=== PATIENT | male | born 2005 | race Caucasian/White ===

== ENCOUNTER 2024-06-14 14:08 | Emergency (ER) | payer MEDICAID, SELFPAY ==
[2024-06-14 14:52] VITALS: BP 152/85; PULSE 75; RESP 24; TEMP 36.4; O2SAT 100; BMI 28.0
--- NOTE | 2024-06-14 15:09 | XR_ITS ---
Examination: Abdomen sonogram, Limited Date and time of exam: June 14, 2024 1516 hrs. Indications: Epigastric pain nausea vomiting beginning 6 months ago, worse today Technique: Real-time barragan scale transabdominal sonographic images of the upper abdomen obtained. Findings: Normal gallbladder Normal common bile duct 0.2 cm Pancreatic head 2.2 cm Liver 12.6 cm no focal liver lesions Normal hepatopedal portal venous flow Patent IVC Impression: Normal gallbladder Normal common bile duct
--- NOTE | 2024-06-14 15:10 | PD.EDRME ---
Rapid Medical Screening Exam RME Arrival date/time: 06/14/24 14:08 18-year-old male reports with complaints of epigastric abdominal pain projectile vomiting and nausea for several weeks Chief Complaint: Abdominal Pain Time Seen by Provider: 06/14/24 15:00 Vital signs: Vital Signs Temperature 97.5 F 06/14/24 14:52 Pulse Rate 75 06/14/24 14:52 Respiratory Rate 24 H 06/14/24 14:52 Blood Pressure 152/85 H 06/14/24 14:52 Pulse Oximetry (%) 100 06/14/24 14:52 Oxygen Delivery Method Room Air 06/14/24 14:52
[2024-06-14 15:50] LABS: Basophils # (Auto) 0.1 Thou/mm3 (0.0-0.2); Basophils % (Auto) 0 % (0-2.5); Eosinophils % (Auto) 0 % (0-10); Hematocrit 46.6 % (41.0-53.0); Hemoglobin 16.2 g/dL (13.5-16.0); Immature Granulocytes % (Auto) 0 % (0-0); Immature Granulocytes Auto 0.07 Thou/mm3 (0.00-0.00); Lymphocytes # (Auto) 1.2 Thou/mm3 (1.0-5.0); Lymphocytes % (Auto) 6 % (10-50); Mean Corpuscular HGB Conc 34.8 g/dl (31.0-37.0); Mean Corpuscular Hemoglobin 27.4 pg (25.0-35.0); Mean Corpuscular Volume 79 fL (80-100); Monocytes # (Auto) 0.7 Thou/mm3 (0.0-0.8); Monocytes % (Auto) 3 % (0-12); Neutrophils # (Auto) 17.1 Thou/mm3 (1.8-7.7); Neutrophils % (Auto) 90 % (37-80); Nucleated Red Blood Cell % 0 /100 WBC (0); Platelet Count 390 Thou/mm3 (140-440); RDW Standard Deviation 37.4 fL (35.1-43.9); Red Blood Count 5.91 Miln/mm3 (4.50-5.90)
[2024-06-14] MEDS: ONDANSETRON ODT 4 MG TABRAP PO (15:50)
[2024-06-14 16:05] LABS: Alanine Aminotransferase 14 U/L (10-49); Albumin, Serum 5.5 gm/dL (3.5-5.0); Albumin/Globulin Ratio 2.2 (1.2-2.2); Alkaline Phosphatase 77 U/L (46-116); Anion Gap 11 (7-16); Aspartate Amino Transferase 23 U/L (0-34); BUN/Creatinine Ratio 10 Ratio (12-20); Bilirubin,Total 1.1 mg/dL (0.3-1.2); Blood Urea Nitrogen 11 mg/dL (9-23); Calcium 10.4 mg/dL (8.3-10.6); Calcium (Corrected) 10.4 mg/dL (8.5-10.1); Carbon Dioxide 24.9 mMol/L (20.0-31.0); Chloride 103 mMol/L (98-107); Creatinine (Component) 1.1 mg/dL (0.6-1.3); Estimated Creatinine Clearance 117.5 mL/min (>60); Globulin 2.5 gm/dL (2.3-3.5); Glucose 138 mg/dL (74-106); Lipase 31 U/L (12-53); Osmolality,Calculated 278 (275-295); Potassium 4.3 mMol/L (3.4-5.1); Sodium 139 mMol/L (136-145); eGFR > 60 See Note
--- NOTE | 2024-06-14 18:06 | PC.NURSE ---
NO ANSWER IN LOBBY
[2024-06-14 18:34] LABS: Collection Type, Urine Clean Catch; RBC,Urine 0 /hpf (0-3); Squamous Epithelial Cell,Urine 0 /hpf (0-5); WBC,Urine 0 /hpf (0-5)
[2024-06-14 18:39] LABS: Bacteria,Urine Rare; Bilirubin,Urine Negative (Negative); Blood,Urine Negative (Negative); Clarity,Urine Clear (Clear/Hazy); Color,Urine Yellow (Lt Yel-Yel); Culture Indicated,Urine Not Indicated; Glucose, Urine Negative (Negative); Ketones,Urine 4+ (Negative); Leukocyte Esterase,Urine Negative (Negative); Nitrite,Urine Negative (Negative); PH,Urine 6.5 (5.0-7.0); Protein,Urine 1+ (Neg - Trace); Specific Gravity,Urine 1.033 (1.001-1.035); Urobilinogen,Urine Negative mg/dL (0.0-1.0)
[2024-06-14 19:03] LABS: Amphetamine/Methamp Scrn,U Negative (Negative); Barbiturate Screen,Urine Negative (Negative); Benzodiazepines Screen,Urine Negative (Negative); Benzoylecgonine Screen, Ur Negative (Negative); Fentanyl Screen,Urine Negative (Negative); Opiate Screen,Urine Negative (Negative); THC Screen,Urine Positive (Negative)
[2024-06-14 19:24] VITALS: BP 122/82; PULSE 88
--- NOTE | 2024-06-14 19:24 | PD.EDABDPN ---
ED Abdominal Pain RME/HPI General Chief Complaint: Abdominal Pain Stated complaint: EPIGASTRIC PAIN WITH VOMITING Time seen by provider: 06/14/24 15:00 Arrival date/time: 06/14/24 14:08 18-year-old male with no significant past medical history other than every day marijuana smoker presents emergency department complaining of epigastric pain with several episodes of nausea and vomiting this been ongoing for several weeks. Patient denies any fever, chills, dysuria, cough, shortness of breath, or any other associated symptom. Source: patient Mode of arrival: ambulatory Limitations: no limitations RME / HPI RME / HPI narrative: 06/14/24 14:08 18-year-old male reports with complaints of epigastric abdominal pain projectile vomiting and nausea for several weeks Related Data Previous Rx's ?Medication ?Instructions ?Recorded ondansetron 4 mg disintegrating 4 mg PO Q8H PRN nausea and 06/14/24 tablet vomiting #10 tabs Allergies Allergy/AdvReac Type Severity Reaction Status Date / Time No Known Allergies Allergy Unverified 06/14/24 15:11 Review of Systems Review of Systems Systems Reviewed: All systems reviewed, normal except as documented Constitutional Constitutional: Reports system reviewed and no additional complaints, except as documented, Denies body ache(s), Denies chills and Denies fever(s) Eyes Eyes: Reports system reviewed and no additional complaints, except as documented and Denies change in vision ENT Ears, Nose, Mouth, and Throat: Reports system reviewed and no additional complaints, except as documented, Denies disequilibrium, Denies dizziness, Denies sore throat and Denies vertigo Cardiovascular Cardiovascular: Reports system reviewed and no additional complaints, except as documented, Denies chest pain and Denies dyspnea Respiratory Respiratory: Reports system reviewed and no additional complaints, except as documented, Denies chest congestion, Denies cough and Denies dyspnea Gastrointestinal Gastrointestinal: Reports system reviewed and no additional complaints, except as documented, Reports abdominal pain, Reports nausea and Reports vomiting Musculoskeletal Musculoskeletal: Reports system reviewed and no additional complaints, except as documented, Denies abnormal gait and Denies arthralgias Integumentary/Breasts Skin/Breast: Reports system reviewed and no additional complaints, except as documented, Denies erythema, Denies rash and Denies wounds Neurologic Neurologic: Reports system reviewed and no additional complaints, except as documented, Denies abnormal gait, Denies disequilibrium, Denies dizziness and Denies vertigo Past Medical History Social History SMOKING STATUS: Current some day smoker ED Exam General Limitations: Present no limitations General appearance: Present alert and in no apparent distress Head Head exam: Present atraumatic Eye Eye exam: Present normal appearance, PERRL and EOMI ENT ENT exam: Present normal exam, normal oropharynx and mucous membranes moist Neck Neck exam: Present normal inspection, full ROM and trachea midline Chest Chest inspection: Present normal inspection and symmetric chest wall rise Respiratory Respiratory exam: Present normal lung sounds bilaterally Cardiovascular Cardiovascular exam: Present regular rate, normal rhythm and normal heart sounds Abdominal Exam Abdominal exam: Present soft and normal bowel sounds; Absent tenderness, Gordon's sign or tenderness at McBurney's Point Extremities Exam Extremities exam: Present normal inspection and full ROM Back Exam Back exam: Present normal inspection and full ROM Neurological Exam Neurological exam: Present alert, oriented X3 and CN II-XII intact Psychiatric Psychiatric exam: Present normal affect and normal mood Skin Skin exam: Present warm, dry, intact and normal color Course Quality Measures none Orders Category Date Time Status US abdomen limited Stat Exams 06/14/24 15:09 Completed CBC Stat Lab 06/14/24 15:38 Completed CMP [Comprehensive Metabolic Panel] Stat Lab 06/14/24 15:38 Completed Drug Screen,Urine Stat Lab 06/14/24 18:15 Completed Lipase Stat Lab 06/14/24 15:38 Completed Urinalysis, C/S if Indicated Stat Lab 06/14/24 18:15 Completed Ondansetron Odt [Zofran Odt] Med 06/14/24 15:09 Discontinued 4 mg PO X1 ONE Vital Signs Vital signs: Vital Signs Temperature 97.5 F 06/14/24 14:52 Pulse Rate 75 06/14/24 14:52 Respiratory Rate 24 H 06/14/24 14:52 Blood Pressure 152/85 H 06/14/24 14:52 Pulse Oximetry (%) 100 06/14/24 14:52 Oxygen Delivery Method Room Air 06/14/24 14:52 100% room air within normal limits Abdominal Pain MDM MDM Narrative MDM Narrative:: 18-year-old male with no significant past medical history other than every day marijuana smoker presents emergency department complaining of epigastric pain with several episodes of nausea and vomiting this been ongoing for several weeks. Patient denies any fever, chills, dysuria, cough, shortness of breath, or any other associated symptom. Patient's abdomen is soft and nontender with no tenderness to McBurney's point. Patient reported significant improvement in nausea after given medication and was able to tolerate fluids. CBC was remarkable for leukocytosis 19.0 but patient denies any fevers and appears nontoxic and is hemodynamically stable. Leukocytosis might be from acute vomiting. CMP and urinalysis were unremarkable. Ultrasound abdomen was unremarkable. Patient reports everyday marijuana smoker with urinalysis positive for THC. Likely cannabinoid hyperemesis syndrome. Instructed patient to return immediately to emergency department for any worsening abdominal pain fevers or as needed. Patient data External records reviewed:: None Clinical information provided by:: patient Social determinants that could affect healthcare access:: substance use Patient has the following chronic illnesses:: See chart How is presenting disease/condition affected by chronic disease/condition?: exacerbated by Evaluation data The following diagnostics were reviewed and interpreted by me:: lab results Lab and/or radiology exams considered but not ordered:: Ordered Interpretation Summary: Interpreted by me Medications / Prescriptions Medications or Prescriptions considered but not ordered:: Ordered Medication administrations:: Medication Administration History Discontinued Medications Ondansetron HCl (Ondansetron Odt 4 Mg Tabrap) 4 mg PO X1 ONE; Protocol Stop: 06/14/24 15:10 Last Admin: 06/14/24 15:50 Dose: 4 mg Documented By: PIO Given Consultations Consultation(s) initiated? (list below): No Diagnosis Differential diagnosis abdominal pain: abdominal pain, acute appendicitis, calculus of kidney, constipation, diverticulitis, gastroenteritis, pancreatitis and small bowel obstruction Most likely diagnosis given after review of the tests above:: Cannabinoid hyperemesis syndrome Admission Indicated Admission indicated?: not indicated Admission Request Was there a request for admission?: No Disposition Plan Disposition Plan: Discharge Discharge Attestation Discharge Attestation: The patient and all family members were given an opportunity to ask questions and understood the discharge instructions. Discharge instructions specifically effects, indications for sooner follow up or return to the emergency department, and the expected course of current diagnosis. Patient condition: Stable Discharge Plan Plan Patient Disposition: HOME (Self Care) Disposition Comment: Stable Prescriptions/Referrals Prescriptions/Med Rec: New ondansetron 4 mg tablet,disintegrating 4 mg PO Q8H PRN (Reason: nausea and vomiting) Qty: 10 0RF Referrals: Smalls,Sia, [employer] [Primary Care Provider] - In 1 week Problem List Clinical Impression: Cannabinoid hyperemesis syndrome Patient/Caregiver Discharge Instructions Discharge Activity: activity as tolerated Education Materials: Self-Care for Vomiting and Diarrhea, ED Diet for Vomiting or ..., ED Vomiting (Adult) Additional Instructions: Take medication as prescribed. Encourage fluids. Close follow-up with primary care provider in 24 to 48 hours. Return immediately emergency department for any increased pain, fever, or any worsening symptoms. Print Language: Citizen Of [place] Stand Alone Forms: Staci Award Info., Patient Portal Info Letter PA/AZURE DEVELOPER Supervising Physician PA/AZURE DEVELOPER Supervising Physician: Dr. Nur
== END 2024-06-14 19:29 | disposition home or self-care (01) ==
PROVIDERS: Physician Assistant; Emergency Provider Emergency Medicine; PCP Nurse Practitioner Family
DX: R11.2 Nausea with vomiting, unspecified (principal); F12.90 Cannabis use, unspecified, uncomplicated; R10.13 Epigastric pain
CPT/HCPCS: 36415; 76705; 80053; 80307; 81001; 83690; 85025; 99284; Q0162

== ENCOUNTER 2025-03-13 08:23 | Emergency (ER) | payer MEDICAID, SELFPAY ==
[2025-03-13 08:23] VITALS: BMI 30.5
[2025-03-13 08:42] VITALS: BP 133/86; PULSE 72; RESP 19; TEMP 36.4; O2SAT 98
--- NOTE | 2025-03-13 09:24 | EDNOTE_ITS ---
ED Ear RME/HPI General Chief complaint: Ear Stated complaint: BUG STUCK IN RIGHT EAR Time Seen by Provider: 03/13/25 08:29 Arrival date/time: 03/13/25 08:23 This is a 19-year-old male that comes into the emergency room with complaints of bug in his right ear. Patient denies any other complaints. Pt reports that he has a device that lets him see inside ear and he was trying to remove bug frm ear on his own. Pt right ear gisselle erythemic and bleeding already at the time of arrival. Related Data Previous Rx's ?Medication ?Instructions ?Recorded ondansetron 4 mg disintegrating 4 mg PO Q8H PRN nausea and 06/14/24 tablet vomiting #10 tabs amoxicillin 875 mg-potassium 1 tab PO Q12H #14 tabs clavulanate 125 mg tablet ibuprofen 800 mg tablet 800 mg PO Q6H PRN pain #20 t abs 03/13/25 Allergies Allergy/AdvReac Type Severity Reaction Status Date / Time No Known Allergies Allergy Unverified 03/13/25 08:25 Review of Systems Review of Systems Systems Reviewed: All systems reviewed, normal except as documented Past Medical History Social History SMOKING STATUS: Current some day smoker ED Exam Narrative Physical exam: VITAL SIGNS: Reviewed. GENERAL APPEARANCE: Alert and interactive, follows commands, no acute distress HEAD AND FACE: Non-traumatic. ENT: PERRL, conjuctiva pink and clear, eyelid no trauma, Mucous membrane moist. Ear canal erythemic there is a bug in right ear. NECK: Supple, nontender, no nuchal rigidity. CHEST: No tenderness, no crepitus, no paradoxical movement, no retractions. LUNGS: breathing even and unlabored HEART: Regular rate, cap refill less than 2 seconds ABDOMEN: Soft, nondistended, no guarding, nontender, no rebound, no masses, NEUROLOGICAL: Gross motor function intact sensory function intact, Appropriate for age. MUSCULOSKELETAL: low back nontender, full range of motion. EXTREMITIES: No redness no swelling no skin breakdown on bilateral foot and leg. Distal neurovascular status intact bilateral foot SKIN: Color pink, dry, no rash, no lacerations, no abrasions, no contusions. Course Quality Measures none Orders Category Date Time Status Irrigate [Wound Care] X1 Care 03/13/25 09:02 Completed Amoxicillin/Pot Clav 875 [Augmentin 875] Med 03/13/25 11:26 Discontinued 1 tab PO X1 ONE Ibuprofen Tab [Motrin Tab] Med 03/13/25 11:26 Discontinued 800 mg PO X1 ONE Lidocaine 2% Viscous [Xylocaine 2% Viscous] Med 03/13/25 09:02 Discontinued 15 ml PO X1 ONE Vital Signs Vital signs: Vital Signs Temperature 97.5 F 03/13/25 08:42 Pulse Rate 72 03/13/25 08:42 Respiratory Rate 19 03/13/25 08:42 Blood Pressure 133/86 H 03/13/25 08:42 Pulse Oximetry (%) 98 03/13/25 08:42 Oxygen Delivery Method Room Air 03/13/25 08:42 Ear MDM Narrative MDM Narrative:: Patient had a lot of irritation to his right ear prior to coming to the emergency room. Patient was trying to see inside his ear with a camera that he has at home. Patient stuck a small little camera in his ear and had small amounts of blood in ear canal. Ear canal was slightly swollen. We used viscous lidocaine to initially instill in right ear. This helped with the pain. The insect appears to be now. We flushed ear with warm normal saline. Patient tolerated procedure well. Not able to get insect out of patient's ear. Pt did not want to flush ear with saline any further. I spoke to patient at length. Because his ear canal is swollen and there was some blood I would like to treat patient for otitis media and otitis externa prophylactically. I told patient he will need to be referred to an grinder set up operator gear tool. Patient verbalized understanding. Patient data External records reviewed:: [facility] previous records Clinical information provided by:: patient Social determinants that could affect healthcare access:: none Patient has the following chronic illnesses:: none How is presenting disease/condition affected by chronic disease/condition?: no chronic disease Evaluation data The following diagnostics were reviewed and interpreted by me:: other (specify) (none ) Lab and/or radiology exams considered but not ordered:: none Interpretation Summary: see note Medications / Prescriptions Medications or Prescriptions considered but not ordered:: none Medication administrations:: Medication Administration History Discontinued Medications Amoxicillin/Clavulanate Potassium (Amoxicillin/Pot Clav 875 Tablet) 1 tab PO X1 ONE Stop: 03/13/25 11:27 Last Admin: 03/13/25 11:35 Dose: 1 tab Documented By: Ibuprofen (Ibuprofen Tab 400 Mg Tablet) 800 mg PO X1 ONE Stop: 03/13/25 11:27 Last Admin: 03/13/25 11:34 Dose: 800 mg Documented By: Lidocaine HCl (Lidocaine Viscous 2% 15 Ml Udc) 15 ml PO X1 ONE Stop: 03/13/25 09:03 Last Admin: 03/13/25 09:29 Dose: 15 ml Documented By: see mar Consultations Consultation(s) initiated? (list below): No Diagnosis Most likely diagnosis given after review of the tests above:: bug to right ear Admission Indicated Admission indicated?: not indicated Admission Request Was there a request for admission?: No Disposition Plan Disposition Plan: Discharge Discharge Attestation Discharge Attestation: The patient and all family members were given an opportunity to ask questions and understood the discharge instructions. Discharge instructions specifically effects, indications for sooner follow up or return to the emergency department, and the expected course of current diagnosis. Patient condition: Stable Discharge Plan Plan Patient Disposition: HOME (Self Care) Patient condition on transfer: Stable Prescriptions/Referrals Prescriptions/Med Rec: New ibuprofen 800 mg tablet 800 mg PO Q6H PRN (Reason: pain) Qty: 20 0RF amoxicillin-pot clavulanate 875-125 mg tablet 1 tab PO Q12H Qty: 14 0RF No Action ondansetron 4 mg tablet,disintegrating 4 mg PO Q8H PRN (Reason: nausea and vomiting) Qty: 10 0RF Referrals: Jose Santiago FNP [Primary Care Provider] - In 1 week Problem List Clinical Impression: Foreign body in ear, Irritation of external ear canal Patient/Caregiver Discharge Instructions Discharge Activity: activity as tolerated Education Materials: ED EAR CANAL Foreign Body Additional Instructions: Will need to be referred to an grinder set up operator gear tool to have her the bug removed from his ear. Please take antibiotics as prescribed. Come back to the emergency room if symptoms change or worsen. Print Language: Italian Stand Alone Forms: Staci Award Info., Work/School Release, Patient Portal Info Letter BETO/HELDER Supervising Physician BETO/HELDER Supervising Physician: fortunato
[2025-03-13] MEDS: LIDOCAINE VISCOUS 2% 15 ML UDC PO (09:29)
[2025-03-13] MEDS: IBUPROFEN TAB 400 MG TABLET 800 MG PO (11:34)
[2025-03-13] MEDS: AMOXICILLIN/POT CLAV 875 TABLET 1 TAB PO (11:35)
== END 2025-03-13 12:37 | disposition home or self-care (01) ==
PROVIDERS: Emergency Provider Emergency Medicine
DX: T16.1XXA Foreign body in right ear, initial encounter (principal); W44.F4XA Insect entering into or through a natural orifice, initial encounter; H66.91 Otitis media, unspecified, right ear; H60.91 Unspecified otitis externa, right ear
CPT/HCPCS: 99283; J3490; A9270